=== PATIENT | male | born 1940 | race Asian ===

== ENCOUNTER 2020-12-23 14:46 | Emergency (ER) | payer MEDICARE, OTHER ==
[~2020-12-23] VITALS: Ht 167.6 cm; Wt 68.0 kg
[2020-12-23 16:43] VITALS: BP 165/73
== END 2020-12-23 16:50 | disposition home or self-care (01) ==
LOC: EMS 14:46 → EDSEX 14:46 → EMS 16:50
DX: S00.01XA Abrasion of scalp, initial encounter (principal); X58.XXXA Exposure to other specified factors, initial encounter; Y93.89 Activity, other specified; Y92.89 Other specified places as the place of occurrence of the external cause; Y99.8 Other external cause status
CPT/HCPCS: 99283; Z7502